=== PATIENT | female | born 1955 | race Caucasian/White ===

== ENCOUNTER 2020-10-14 08:37 | Outpatient (CLI) | payer MEDICARE, BC ==
[2020-10-14] MEDS ORDERED: GENTAMICIN 0.1% CREAM 15 GM TUBE ONE (09:27)
== END 2020-10-14 23:59 | disposition home or self-care (01) ==
LOC: WOU 08:37
PROVIDERS: ATTEND Podiatrist Foot & Ankle Surgery
DX: L89.893 Pressure ulcer of other site, stage 3 (principal); L03.031 Cellulitis of right toe; M20.41 Other hammer toe(s) (acquired), right foot; Z87.891 Personal history of nicotine dependence; M19.072 Primary osteoarthritis, left ankle and foot
CPT/HCPCS: 11042; 73630-TC; 87070-TC; 87075-TC

== ENCOUNTER 2020-10-28 08:39 | Outpatient (CLI) | payer MEDICARE, BC | END 2020-10-28 23:59 | disposition home or self-care (01) | LOC: WOU 08:39 | PROVIDERS: ATTEND Podiatrist Foot & Ankle Surgery | DX: L89.893 Pressure ulcer of other site, stage 3 (principal); L03.031 Cellulitis of right toe; M20.41 Other hammer toe(s) (acquired), right foot; Z79.899 Other long term (current) drug therapy | CPT/HCPCS: 11042; A6209 ==

== ENCOUNTER 2020-11-11 09:10 | Outpatient (CLI) | payer MEDICARE, BC ==
[2020-11-11] MEDS ORDERED: MUPIROCIN 2% CREAM 15 GM TUBE TP ONE (09:54)
== END 2020-11-11 23:59 | disposition home or self-care (01) ==
LOC: WOU 09:10
PROVIDERS: ATTEND Podiatrist Foot & Ankle Surgery
DX: L89.893 Pressure ulcer of other site, stage 3 (principal); M20.41 Other hammer toe(s) (acquired), right foot; L84 Corns and callosities; Z79.899 Other long term (current) drug therapy
CPT/HCPCS: 11042